=== PATIENT | male | born 1995 | race Caucasian/White ===

== ENCOUNTER 2016-11-28 16:23 | Emergency (ER) | payer MEDICARE, MEDICAID ==
[2016-11-28 16:31] VITALS: BP 131/58
[2016-11-28] MEDS ORDERED: KETOROLAC TROMETHAMINE 60 MG/2 ML VIAL IM ONE ×2 (16:40→16:45)
--- NOTE | 2016-11-28 16:50 | ERNOTE ---
Medical Problem HPI - Narrative Date of Service: 11/28/16 - General Chief Complaint: General Assessment Time Seen by Provider: 11/28/16 16:35 Source: patient Exam Limitations: no limitations - Immun/Allergies/Home Medications Allergies/Adverse Reactions: Allergies penicillin G Allergy (Verified 11/28/16 16:32) Home Medications: HOME MEDICATIONS Naproxen [Naprosyn] 500 mg PO BID PRN #60 tab 11/28/16 [Last Taken Unknown] - History of Present History Narrative: Pt. comes in with c/o R anterior chest pain that started at noon. Pt. denies any injury, SOB, recent cough or cold. Pt. denies any prehospital treatment and states that his pain is aggravated by deep breathing or movement. Pt. denies any cardiac history personally or family but pt. is a smoker. Review of Systems - Review of Systems Constitutional: Present: no symptoms reported. Absent: recent illness, fever, chills, weakness, fatigue, malaise EYE: Present: no symptoms reported ENT: Present: no symptoms reported Respiratory: Present: no symptoms reported. Absent: shortness of breath, cough , wheezing Cardiology: Present: no symptoms reported. Absent: chest pain, palpitations, edema Gastrointestinal/Abdominal: Present: no symptoms reported. Absent: nausea, vomiting, diarrhea Genitourinary: Present: no symptoms reported Musculoskeletal: Present: no symptoms reported. Absent: back pain, neck pain, joint pain Skin: Present: no symptoms reported. Absent: rash, change in color Neurological: Present: no symptoms reported. Absent: headache, dizziness/light- headedness, numbness, tingling All Other Systems: All systems neg except as marked - Patient's Past Medical History Patient History - Medical: No pertinent hx Patient History - Cardiac/Respiratory: No pertinent hx Patient History - Cancer: No Hx of Cancer Patient History - Surgical Procedures: No surgical history - Social History Living Situations: home Alcohol Use: none Physical Exam - Physical Exam General Appearance: Present: wd/wn, alert, no apparent distress Eye Exam: Normal inspection: bilateral, PERRL: bilateral, EOMI: bilateral Ears, Nose, Throat: Present: normal ENT inspection, hearing grossly normal, normal pharynx Neck: Present: normal inspection, nontender. Absent: lymphadenopathy (R), lymphadenopathy (L) Respiratory: Present: no respiratory distress, normal breath sounds, no accessory muscle use, lungs clear, chest tenderness - R lateral 5 intercostal space from sternum to lateral side Cardiovascular/Chest: Present: regular rate, rhythm, no murmur, normal peripheral pulses Gastrointestinal/Abdominal: Present: normal bowel sounds, nontender, nondistended, soft, no organomegaly Back Exam: Present: normal inspection, normal range of motion, no CVA tenderness , no vertebral tenderness Extremity Exam: Present: normal inspection, non-tender, no edema, normal range of motion Neurological Exam: Present: alert, oriented, normal mood/affect, no motor/ sensory deficits, 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 Absent: pallor, skin rash ED Progress - Date and Time Seen: Date and Time: 11/28/16 18:48 All emergent possibilities for R sided cp ruled out assume that this is costochondritis. - Results and Orders Patient's Lab Results:: I have reviewed the patient's lab results. - Vital Signs Patient's Vital Signs:: I have reviewed the patient's vital signs. Vital Signs: Vital Signs 11/28/16 16:26 Temperature 35.1 C L Pulse Rate 86 Respiratory 12 Rate Blood Pressure 131/58 O2 Sat by Pulse 99 Oximetry - EKG EKG: other - Sinus rhythm C short pr interval EKG read: Interp. by me - X-Ray X-Ray #1 X-Ray: chest Interpretation: Interp. by me X-ray Comments: no acute cardiopulmonary process - Progress/Reassessment Chief Complaint: General Assessment Progress:: Improved Departure - Departure Clinical Impression: Costochondritis, acute Disposition: Home self-care Condition: Good Instructions: Costochondritis, [id number] Additional Instructions: Please follow up with primary provider in 2-3 days. Prescriptions: Naproxen [Naprosyn] 500 mg PO BID PRN #60 tab PRN Reason: Pain
[2016-11-28 17:08] LABS: Hematocrit 42.2 % (42.0-52.0); Hemoglobin 14.4 gm/dL (13.5-18.0); Mean Cell Volume 88.3 fl (78-100); Mean Corpuscular Hemoglobin 30.1 pg (27-31); Mean Corpuscular Hgb Conc 34.1 g/dl (32-36); Mean Platelet Volume 10.1 fl (6.0-9.5); Neutrophil # 2.8 K/mm3 (1.3-6.0); Neutrophil % 55.8 % (42-75.0); Platelet Count 155 K/mm3 (150-450); Red Blood Count 4.78 M/mm3 (4.7-6.0); Red Cell Distribution Width 11.7 % (11.5-14.0); White Blood Count 5.1 K/mm3 (4.0-10.5)
[2016-11-28 17:24] LABS: ALT 21 U/L (19-67); AST 12 U/L (0-48); Alkaline Phosphatase * 73 U/L (50-170); Anion Gap 11.8 mmol/L (6.8-13.8); BUN/Creatinine Ratio 8.9 (9.0-21.6); Bilirubin, Total 0.6 mg/dL (0.0-1.1); Blood Urea Nitrogen 9 mg/dL (6-23); Ca. Corrected For Albumin 8.7 mg/dL (8.4-10.2); Carbon Dioxide 28.3 mmol/L (24-32.6); Chloride 105 mmol/L (97-106); Glucose * 85 mg/dL (70-110); Potassium 4.1 mmol/L (3.4-4.6); Sodium 141 mmol/L (132-142); Total Protein 7.4 gm/dL (6.2-8.2); Troponin I Less than 0.017 ng/ml (0.00-0.10)
== END 2016-11-28 18:57 | disposition home or self-care (01) ==
LOC: ER 16:23
DX: M94.0 Chondrocostal junction syndrome [Tietze] (principal)